=== PATIENT | female | born 1965 | race Caucasian/White ===

== ENCOUNTER 2019-08-24 08:17 | Day surgery (SDC) | payer MEDICAID ==
[~2019-08-24] VITALS: Ht 157.5 cm; Wt 68.5 kg
[2019-08-24] MEDS ORDERED: KETOROLAC TROMETHAMINE 30 MG VIAL IM PRN (12:00)
[2019-08-24] MEDS ORDERED: ONDANSETRON HCL 4 MG/2 ML VIAL IVP PRN (12:00)
[2019-08-24] MEDS ORDERED: OXYCODONE/ACETAMINOPHEN 5-325 TABLET PO PRN ×2 (12:00)
[2019-08-24] MEDS ORDERED: IBUPROFEN 800 MG TABLET PO PRN (12:00)
[2019-08-24] MEDS ORDERED: HYDROmorphone 2 MG TAB PO PRN (12:00)
[2019-08-24] MEDS ORDERED: LR 1,000 ML IV SCH (13:27)
[2019-08-24] MEDS ORDERED: METOCLOPRAMIDE HCL 10 MG/2 ML VIAL IVP PRN (13:30)
[2019-08-24] MEDS ORDERED: MORPHINE 4 MG/ML INJ. SYRINGE IVP PRN ×3 (13:30)
[2019-08-24] MEDS ORDERED: cefOXitin 2 GM IVPB PREMIX 50 ML IV ONE (14:00)
[2019-08-24] MEDS ORDERED: LR 1,000 ML IV.SOLN IV ONE (14:00)
[2019-08-24] MEDS ORDERED: SEVOFLURANE 15 MIN GAS INH ONE (14:00)
[2019-08-24] MEDS ORDERED: ONDANSETRON HCL 4 MG/2 ML VIAL ONE (14:00)
[2019-08-24] MEDS ORDERED: PROPOFOL 200MG/ 20ML VIAL (DIPRIVAN) IV ONE (14:00)
[2019-08-24] MEDS ORDERED: NS IRRIG SOLN 1000 ML IR ONE (14:00)
[2019-08-24] MEDS ORDERED: MIDAZOLAM HCL 5 MG/ML VIAL (VERSED) IV ONE (14:00)
[2019-08-24] MEDS ORDERED: WATER FOR IRRIGATION,STERILE 1,000 ML IRRIG.SOLN IR ONE (14:00)
[2019-08-24] MEDS ORDERED: ROCURONIUM BROMIDE 10 MG/ML (ZEMURON) ONE (14:00)
[2019-08-24] MEDS ORDERED: fentaNYL CITRATE 250 MCG/5 ML AMP ONE (14:00)
[2019-08-24] MEDS ORDERED: MORPHINE 4 MG/ML INJ. SYRINGE ONE (14:36)
[2019-08-24] MEDS ORDERED: MORPHINE SULFATE 10 MG/ML VIAL ONE (15:05)
[2019-08-24 15:38] VITALS: BP_SYST 128
[2019-08-24] MEDS ORDERED: METOCLOPRAMIDE HCL 10 MG/2 ML VIAL ONE (15:38)
== END 2019-08-24 16:55 | disposition home or self-care (01) ==
LOC: SDS 08:17 → SMU 08:17 → SDS 16:55
PROVIDERS: ATTEND Obstetrics & Gynecology
DX: N81.4 Uterovaginal prolapse, unspecified (principal); I10 Essential (primary) hypertension; E11.9 Type 2 diabetes mellitus without complications; E66.3 Overweight; Z68.27 Body mass index [BMI] 27.0-27.9, adult
CPT/HCPCS: 58570; 82962; 88307; C1727; J0694; J2250; J2270 ×2; J2405; J2704; J2765; J3010; J7120; S2900; E0190